=== PATIENT | female | born 1990 | race Two or more races ===

== ENCOUNTER 2024-05-03 21:25 | Emergency (ER) | payer MEDICAID, SELFPAY ==
[2024-05-03 21:29] VITALS: BP 167/108; PULSE 101; RESP 18; TEMP 36.8; O2SAT 100
[2024-05-03 21:32] VITALS: BMI 27.4
--- NOTE | 2024-05-03 21:44 | EDNOTE_ITS ---
ED General RME/HPI General Chief complaint: Overdose Stated complaint: OVERDOSE Time Seen by Provider: 05/03/24 21:43 Arrival date/time: 05/03/24 21:25 CC: Fentanyl overdose HPI patient presents the ER via EMS and currently is awake alert oriented x 3 Glascow coma 15 and originally EMS report the patient was arley burnett, 3 fire department had just given intranasal naloxone upon arrival at which time the patient completely woke up. EMS reports stable vital signs en route IV established. The patient is currently awake alert oriented no specific complaints. States that she smokes cigarettes but does not use any other street drugs drink alcohol last menstrual cycle was 2 weeks ago. The patient has no specific complaints at this time. Related Data Allergies Allergy/AdvReac Type Severity Reaction Status Date / Time No Known Allergies Allergy Verified 04/06/22 22:57 Review of Systems Review of Systems Narrative Review of Systems: GEN: No fever, no chills, no weight loss EYES: No discharge, no visual changes, no pain HEENT: No ear pain, no congestion, no sore throat PULM: No shortness of breath, no cough, no congestion CV: No chest pain, no dyspnea on exertion, no palpitations GI: No nausea, no vomiting, no diarrhea, no pain, no constipation : No frequency, no urgency, no dysuria MUSC/SKEL: No joint pain, no back pain SKIN: No rash PSYCH: No hallucinations, no depression HEME/LYMPH: No easy bleeding or bruising tendencies NEURO: No weakness, no headache Past Medical History Past Medical History NEUROLOGIC: Negative Neurological Disorders or Seizures CARDIAC: Negative Cardiac Disorders or Congestive Heart Failure RESPIRATORY: Negative Chronic Obstructive Pulmonary Disease (COPD) GASTROINTESTINAL: Positive Gall Bladder Disease; Negative Gastrointestinal Disorders, Hepatitis or Colorectal Cancer GENITOURINARY: Negative Genitourinary Disorders, Renal Disease or Prostate Cancer REPRODUCTIVE: Negative Breast Cancer or Testicular Cancer MUSCULOSKELETAL: Positive Musculoskeletal Disorders; Negative Bone Cancer ENDOCRINE: Negative Endocrine Disorders, Diabetes Mellitus Type 1 or Diabetes Mellitus Type 2 HEMATOLOGIC: Negative Blood Disorders OTHER HISTORY: Positive Hospitalization and Chicken Pox; Negative Autoimmune Disease, Down Syndrome, Developmental Delay, Shingles, Falls, Blood Transfusions, Blood Transfusion Reaction, Anesthesia Reactions, Organ Transplant, Chemotherapy, Radiation Therapy, Hyperbaric Therapy, MRSA, VRSA, Vancomycin-Resistant Enterococci, Human Immunodeficiency Virus (HIV), Measles, Mumps, Rubella (Amharic Measles), Pertussis, Clostridium Difficile, Breast Cancer, Cervical Cancer, Colorectal Cancer, Lung Cancer, Ovarian Cancer, Prostate Cancer or Testicular Cancer Family History FAMILY HISTORY: Negative Family Psychiatric Problems, Family Respiratory Disorders, Family Cardiac Disorders, Family Gastrointestinal Problems, Family Cancer, Family Surgery or Family Anesthesia Reaction Surgical History SURGICAL: Positive Abdominal Surgery and Section; Negative Organ Transplant Social History SMOKING STATUS: Current some day smoker SECOND HAND EXPOSURE: Yes ED Exam Narrative Physical exam: [General: Obese not in any acute distress Head normocephalic HEENT: Within acceptable limits Neck is supple nontender Chest equal chest rise nontender to palpation Respiratory: Clear to auscultation no wheezes crackles or rubs CV: Rate rhythm is regular no murmurs rubs or clicks Abdomen is soft nontender no masses positive bowel sounds all 4 quadrants Back: No CVA tenderness no spinous process tenderness from cervical spine thoracic and lumbar spine Skin: Intact no petechiae rash induration ulceration or crepitus Extremities: Moving all extremity against resistance cap refill less than 2 seconds neurosensory intact Neuro: Awake alert oriented x3 Glascow coma 15 no focal deficits] Course Course Course Narrative: 2199 patient is requesting discharge, the patient is awake alert oriented of sound mind, is no slurred speech altered mentation direct eye contact denies suicidal homicidal ideation. She is refusing all medical interventions including blood draw urine test. This time I am comfortable discharging this patient home she is warned that smoking fentanyl can be life-threatening patient understands the consequences of this and understand that she may just like she did before the Narcan was administered. Quality Measures none Orders Category Date Time Status Alcohol, Urine Stat Lab 05/03/24 21:44 Ordered Drug Screen,Urine Stat Lab 05/03/24 21:44 Ordered HCG Qualitative,Urine Stat Lab 05/03/24 21:44 Ordered Urinalysis Stat Lab 05/03/24 21:44 Ordered Vital Signs Vital signs: Vital Signs Temperature 98.3 F 05/03/24 21:29 Pulse Rate 101 H 05/03/24 21:29 Respiratory Rate 18 05/03/24 21:29 Blood Pressure 167/108 H 05/03/24 21:29 Pulse Oximetry (%) 100 05/03/24 21:29 [facility] Patient data External records reviewed:: [facility] previous records and EMS form Clinical information provided by:: patient and EMS Social determinants that could affect healthcare access:: substance use Patient has the following chronic illnesses:: Polysubstance abuse How is presenting disease/condition affected by chronic disease/condition?: exacerbated by Evaluation data The following diagnostics were reviewed and interpreted by me:: lab results Lab and/or radiology exams considered but not ordered:: None Interpretation Summary: Fentanyl overdose Medications Medications considered but not ordered:: None Medication administrations:: None Consultations Consultation(s) initiated? (list below): No Diagnosis Differential Diagnosis ED Complaint MDM: Fentanyl overdose polysubstance abuse alcohol abuse Most likely diagnosis given after review of the tests above:: Fentanyl overdose Admission Indicated Admission indicated?: not indicated Explain why admission is indicated or not indicated:: Refusing stay in the ER refusing admission Admission Request Was there a request for admission?: No Disposition Plan Disposition Plan: Discharge Discharge Attestation Discharge Attestation: The patient and all family members were given an opportunity to ask questions and understood the discharge instructions. Discharge instructions specifically effects, indications for sooner follow up or return to the emergency department, and the expected course of current diagnosis. Patient condition: Stable Medical Decision Making Differential Diagnosis Differential Diagnosis: Fentanyl overdose polysubstance abuse alcohol abuse Discharge Plan Plan Patient Disposition: HOME (Self Care) Patient condition on transfer: Stable Problem List Clinical Impression: Mild fentanyl abuse, Overdose of fentanyl Patient/Caregiver Discharge Instructions Education Materials: ED Drug Abuse Additional Instructions: Stop fentanyl at all costs. Print Language: Salvadorean Stand Alone Forms: Yanni Award Info., Patient Portal Info Letter PA/RENEE Supervising Physician PA/PAINT LINE SUPERVISOR Supervising Physician: Juan A Mary ENP
[2024-05-03 21:52] VITALS: PULSE 112; O2SAT 99
--- NOTE | 2024-05-03 21:55 | PC.NURSE ---
PT AWAKE AND ALERT BROUGHT INTO ER BY AMBULANCE FOR ACCIDENTAL OVERDOSE. PER EMS PT SMOKED FENTANYL. ON SCENE PT GCS 3 FOR FIRE, PLACED ON OXYGEN. PT GIVEN X4 NARCAN BY PD. UPON EMS ARRIVAL PT [facility]CS 15. PT PLACED IN RM 11. PT DENIES ANY SI OR HI. PT AMBULATORY WITH STEADY GAIT. PT ALERT AND ORIENTED X3. PT DENIES ANY PAIN. PT WANTING TO LEAVE, PROVIDER MARI MADE AWARE.
[2024-05-03 22:13] VITALS: PULSE 104; RESP 16; O2SAT 100
== END 2024-05-03 22:21 | disposition home or self-care (01) ==
LOC: SERX 22:08
PROVIDERS: Emergency Provider Emergency Medicine; PCP Family Medicine
DX: T40.411A Poisoning by fentanyl or fentanyl analogs, accidental (unintentional), initial encounter (principal); F11.10 Opioid abuse, uncomplicated; F17.210 Nicotine dependence, cigarettes, uncomplicated
CPT/HCPCS: 80307; 80320; 81001; 81025; 99283; G0480

== ENCOUNTER 2024-09-22 20:46 | Emergency (ER) | payer MEDICAID, SELFPAY ==
[2024-09-22 20:47] VITALS: BMI 25.7
--- NOTE | 2024-09-22 21:13 | PC.NURSE ---
CALLED FOR PT FROM LOBBY/OUTSIDE, NO ANSWERX1@ [phone]
--- NOTE | 2024-09-22 21:30 | PC.NURSE ---
CALLED FOR PT FROM LOBBY/OUTSIDE, NO ANSWERX2@ [phone]
--- NOTE | 2024-09-22 22:05 | PD.EDADDENDU ---
Emergency Room Addendum Addendum Narrative: The patient left before I saw the patient. Kole Sequeira MD
--- NOTE | 2024-09-22 23:02 | PC.NURSE ---
CALLED FOR PT FROM LOBBY/OUTSIDE, NO ANSWERX3@ [phone]
== END 2024-09-22 23:25 | disposition left against medical advice (07) ==
LOC: SERX 22:43
PROVIDERS: Emergency Provider Emergency Medicine
DX: Z53.21 Procedure and treatment not carried out due to patient leaving prior to being seen by health care provider (principal)

== ENCOUNTER 2024-09-29 10:00 | Emergency (ER) | payer MEDICAID, SELFPAY ==
[2024-09-29 10:10] VITALS: BP 132/90; PULSE 94; RESP 18; TEMP 37.1; O2SAT 100; BMI 24.0
--- NOTE | 2024-09-29 10:23 | EKG_ITS ---
[facility] Test Date: 2024-09-29 Pat Name: KINJAL RUSS Department: Room: - Gender: Female Dye Stand Loader: : 1990 Requested By: Jason Bill (SHAWNEE) Order Number: [id number] Reading MD: Jason Bill (EYE GLASS FRAME POLISHER) Measurements Intervals [place] Rate: 87 P: 7 OH: 100 QRS: 48 QRSD: 90 T: 36 QT: 368 QTc: 445 Interpretive Statements SINUS RHYTHM WITH SHORT OH INTERVAL Compared to ECG 02/05/2023 08:22:47 Short OH interval now present /store/[id number]
--- NOTE | 2024-09-29 10:23 | XR_ITS ---
Examination: PA lateral chest 2 views TECHNIQUE: Upright PA lateral chest 2 views Exam date and time: September 29, 2024 1208 hours Comparison the 2022 INDICATIONS: Shortness breath coughing today. LUNGS: Normal heart size Significant pneumonia right middle lobe and lingular segment left upper lobe Stable nodule right upper lobe IMPRESSION: Significant pneumonia right middle lobe and lingular segment left upper lobe
[2024-09-29 11:02] LABS: Basophils % (Auto) 0 % (0-2.5); Eosinophils % (Auto) 0 % (0-10); Hematocrit 31.2 % (36.0-46.0); Hemoglobin 10.1 g/dL (12.0-16.0); Immature Granulocytes % (Auto) 0 % (0-0); Immature Granulocytes Auto 0.01 Thou/mm3 (0.00-0.00); Lymphocytes # (Auto) 1.6 Thou/mm3 (1.0-4.8); Lymphocytes % (Auto) 23 % (10-50); Mean Corpuscular HGB Conc 32.4 g/dl (31.0-37.0); Mean Corpuscular Hemoglobin 24.8 pg (25.0-35.0); Mean Corpuscular Volume 77 fL (80-100); Monocytes # (Auto) 0.4 Thou/mm3 (0.0-0.8); Monocytes % (Auto) 6 % (0-12); Neutrophils # (Auto) 4.8 Thou/mm3 (1.8-7.7); Neutrophils % (Auto) 70 % (37-80); Nucleated Red Blood Cell % 0 /100 WBC (0); Platelet Count 426 Thou/mm3 (140-440); RDW Standard Deviation 49.6 fL (36.4-46.3); Red Blood Count 4.07 Miln/mm3 (4.00-5.20); White Blood Count 6.8 Thou/mm3 (3.6-11.0)
[2024-09-29 11:13] LABS: HCG,Qualitative Serum Negative
[2024-09-29 11:24] LABS: Alanine Aminotransferase 16 U/L (10-49); Albumin, Serum 4.3 gm/dL (3.5-5.0); Albumin/Globulin Ratio 1.3 (1.2-2.2); Alkaline Phosphatase 99 U/L (46-116); Anion Gap 6 (7-16); Aspartate Amino Transferase 22 U/L (0-34); BUN/Creatinine Ratio 15 Ratio (12-20); Bilirubin,Total 0.6 mg/dL (0.3-1.2); Blood Urea Nitrogen 9 mg/dL (9-23); Calcium 9.2 mg/dL (8.3-10.6); Calcium (Corrected) 9.2 mg/dL (8.5-10.1); Carbon Dioxide 25.2 mMol/L (20.0-31.0); Chloride 107 mMol/L (98-107); Creatinine (Component) 0.6 mg/dL (0.6-1.3); Estimated Creatinine Clearance 114.1 mL/min (>60); Globulin 3.4 gm/dL (2.3-3.5); Glucose 97 mg/dL (74-106); Osmolality,Calculated 274 (275-295); Potassium 3.3 mMol/L (3.4-5.1); Sodium 138 mMol/L (136-145); Total Protein 7.7 gm/dL (5.7-8.2); Troponin I < 0.002 ng/mL (0.0-0.045); eGFR > 60 See Note
--- NOTE | 2024-09-29 12:58 | EDNOTE_ITS ---
Upper Respiratory Inf. RME/HPI General Chief Complaint: Flu Like Symptoms Stated Complaint: sob with cough x2wks Time Seen by Provider: 09/29/24 10:20 Arrival date/time: 09/29/24 10:00 34-year-old female with medical history significant for methamphetamine abuse presents to the emergency department for complaints of cough, congestion runny nose and fever ongoing for the last couple of weeks intermittently Limitations: no limitations Related Data Previous Rx's ?Medication ?Instructions ?Recorded amoxicillin 875 mg-potassium 1 tab PO BID 10 days #20 tabs 09/29/24 clavulanate 125 mg tablet benzonatate 100 mg capsule 100 mg PO TID #14 caps 09/08 08/31 Allergies Allergy/AdvReac Type Severity Reaction Status Date / Time No Known Allergies Allergy Verified 04/06/22 22:57 Review of Systems Review of Systems Systems Reviewed: All systems reviewed, normal except as documented Constitutional Constitutional: Reports system reviewed and no additional complaints, except as documented, Reports body ache(s), Reports fever(s) and Reports headache(s) Eyes Eyes: Reports system reviewed and no additional complaints, except as documented and Denies blurry vision ENT Ears, Nose, Mouth, and Throat: Reports system reviewed and no additional complaints, except as documented, Reports headache(s), Reports nasal congestion and Reports nasal discharge Cardiovascular Cardiovascular: Reports system reviewed and no additional complaints, except as documented, Denies chest pain and Denies dyspnea Respiratory Respiratory: Reports system reviewed and no additional complaints, except as documented, Reports chest congestion, Reports cough and Denies dyspnea Gastrointestinal Gastrointestinal: Reports system reviewed and no additional complaints, except as documented and Denies abdominal pain Integumentary/Breasts Skin/Breast: Reports system reviewed and no additional complaints, except as documented and Denies rash Neurologic Neurologic: Reports system reviewed and no additional complaints, except as documented, Reports as per HPI and Reports headache(s) Past Medical History Past Medical History NEUROLOGIC: Negative Neurological Disorders or Seizures CARDIAC: Negative Cardiac Disorders or Congestive Heart Failure RESPIRATORY: Negative Chronic Obstructive Pulmonary Disease (COPD) GASTROINTESTINAL: Positive Gall Bladder Disease; Negative Gastrointestinal Disorders, Hepatitis or Colorectal Cancer GENITOURINARY: Negative Genitourinary Disorders, Renal Disease or Prostate Cancer REPRODUCTIVE: Negative Breast Cancer or Testicular Cancer MUSCULOSKELETAL: Positive Musculoskeletal Disorders; Negative Bone Cancer ENDOCRINE: Negative Endocrine Disorders, Diabetes Mellitus Type 1 or Diabetes Mellitus Type 2 HEMATOLOGIC: Negative Blood Disorders OTHER HISTORY: Positive Hospitalization and Chicken Pox; Negative Autoimmune Disease, Down Syndrome, Developmental Delay, Shingles, Falls, Blood Transfusions, Blood Transfusion Reaction, Anesthesia Reactions, Organ Transplant, Chemotherapy, Radiation Therapy, Hyperbaric Therapy, MRSA, VRSA, Vancomycin-Resistant Enterococci, Human Immunodeficiency Virus (HIV), Measles, Mumps, Rubella (Kazakh Measles), Pertussis, Clostridium Difficile, Breast Cancer, Cervical Cancer, Colorectal Cancer, Lung Cancer, Ovarian Cancer, Prostate Cancer or Testicular Cancer Family History FAMILY HISTORY: Negative Family Psychiatric Problems, Family Respiratory Disorders, Family Cardiac Disorders, Family Gastrointestinal Problems, Family Cancer, Family Surgery or Family Anesthesia Reaction Surgical History SURGICAL: Positive Abdominal Surgery and Section; Negative Organ Transplant Social History SMOKING STATUS: Current some day smoker SECOND HAND EXPOSURE: Yes ED Exam General Limitations: Present no limitations General appearance: Present alert and in no apparent distress Head Head exam: Present atraumatic, normocephalic and normal inspection Eye Eye exam: Present normal appearance, PERRL and EOMI; Absent conjunctival injection ENT ENT exam: Present normal exam, normal oropharynx and mucous membranes moist Neck Neck exam: Present normal inspection, full ROM and trachea midline Chest Chest inspection: Present normal inspection and symmetric chest wall rise Respiratory Respiratory exam: Present normal lung sounds bilaterally; Absent respiratory distress Cardiovascular Cardiovascular exam: Present regular rate, normal rhythm and normal heart sounds Abdominal Exam Abdominal exam: Present soft and normal bowel sounds; Absent distention, tenderness, guarding, rebound or rigidity Extremities Exam Extremities exam: Present normal inspection and full ROM Back Exam Back exam: Present normal inspection and full ROM Neurological Exam Neurological exam: Present alert, oriented X3 and CN II-XII intact Psychiatric Psychiatric exam: Present normal affect and normal mood Skin Skin exam: Present warm, dry, intact and normal color Course Quality Measures none Orders Category Date Time Status EKG (ED ONLY) *Do not use* NOW Care 09/29/24 10:23 Completed EKG (ED Only) Stat Exams 09/29/24 10:23 Draft XR chest 2V Stat Exams 09/29/24 10:23 Completed CBC Stat Lab 09/29/24 10:40 Completed Comprehensive Metabolic Panel Stat Lab 09/29/24 10:40 Completed HCG,Qualitative Serum Stat Lab 09/29/24 10:40 Completed Troponin I Stat Lab 09/29/24 10:40 Completed Lidocaine 1% 20 ml [Xylocaine 1% 20 ML] Med 09/29/24 12:59 Discontinued 2.1 ml INFL X1 ONE cefTRIAXone [Rocephin] Med 09/29/24 12:59 Discontinued 1,000 mg IM X1 ONE Vital Signs Vital signs: Vital Signs Temperature 98.7 F 09/29/24 10:10 Pulse Rate 94 09/29/24 10:10 Respiratory Rate 18 09/29/24 10:10 Blood Pressure 132/90 H 09/29/24 10:10 Pulse Oximetry (%) 100 09/29/24 10:10 Oxygen Delivery Method Room Air 09/29/24 10:10 O2 saturation 100% room air within normal limits Procedures -ED EKG Interpretation #1: Date of EK09/29/24 Time of EK:32 Rate: 87 Interpretation: Interpreted by me EKG Impression: Normal sinus rhythm, No acute ST-T changes, No ectopy, No ischemic changes, Normal QRS and Normal intervals Upper Respiratory Infection MDM Narrative MDM Narrative:: 34-year-old female with medical history significant for methamphetamine abuse presents to the emergency department for complaints of cough, congestion runny nose and fever ongoing for the last couple of weeks intermittently On exam patient well-appearing patient does not appear ill or toxic in no acute distress patient is no tachypnea or dyspnea no increased work of breathing patient is hemodynamically stable Lab work and imaging obtained patient does have pneumonia patient given Rocephin and discharged with antibiotics Patient discharged home in no distress to follow-up with primary care doctor in the next 24 to 48 hours and for any worsening symptoms to return to the ER immediately Patient data External records reviewed:: [facility] previous records Clinical information provided by:: patient Social determinants that could affect healthcare access:: none Patient has the following chronic illnesses:: See history How is presenting disease/condition affected by chronic disease/condition?: uneffected by Evaluation data The following diagnostics were reviewed and interpreted by me:: lab results and radiology exam(s) Lab and/or radiology exams considered but not ordered:: Labs and radiology obtained Interpretation Summary: Reviewed by me Medications / Prescriptions Medications or Prescriptions considered but not ordered:: Given Medication administrations:: Medication Administration History Discontinued Medications Ceftriaxone Sodium (Ceftriaxone Sod Inj 1,000 Mg Vial) 1,000 mg IM X1 ONE Stop: 09/29/24 13:00 Last Admin: 09/29/24 13:28 Dose: 1,000 mg Documented By: Lidocaine HCl (Lidocaine Hcl 1% 20 Ml Vial) 2.1 ml INFL X1 ONE Stop: 09/29/24 13:00 Last Admin: 09/29/24 13:29 Dose: 2.1 ml Documented By: Given Consultations Consultation(s) initiated? (list below): No Diagnosis Upper Respiratory Differential Diagnosis: upper respiratory infection, otitis media, sinusitis and viral infection Most likely diagnosis given after review of the tests above:: Pneumonia Admission Indicated Admission indicated?: not indicated Admission Request Was there a request for admission?: No Disposition Plan Disposition Plan: Discharge Discharge Attestation Discharge Attestation: The patient and all family members were given an opportunity to ask questions and understood the discharge instructions. Discharge instructions specifically effects, indications for sooner follow up or return to the emergency department, and the expected course of current diagnosis. Patient condition: Stable Discharge Plan Plan Patient Disposition: HOME (Self Care) Disposition Comment: Stable Prescriptions/Referrals Prescriptions/Med Rec: New benzonatate 100 mg capsule 100 mg PO TID Qty: 14 0RF amoxicillin-pot clavulanate 875-125 mg tablet 1 tab PO BID 10 Days Qty: 20 0RF Referrals: Viri Foy MD [Primary Care Provider] - 10/01/24 Problem List Clinical Impression: Pneumonia Patient/Caregiver Discharge Instructions Education Materials: ED Pneumonia (Adult) Additional Instructions: Please follow up with your primary care doctor in the next 24-48hrs for any worsening symptoms return here immediately Print Language: Chinese Stand Alone Forms: Yanni Award Info., Work/School Release, Patient Portal Info Letter IVY/RENEE Supervising Physician IVY/RENEE Supervising Physician: Dr anderson
[2024-09-29] MEDS: cefTRIAXone SOD INJ 1,000 MG VIAL 1000 MG IM (13:28)
[2024-09-29] MEDS: LIDOCAINE HCL 1% 20 ML VIAL 2.1 ML INFL (13:29)
== END 2024-09-29 13:43 | disposition home or self-care (01) ==
PROVIDERS: Nurse Practitioner Primary Care; Emergency Provider Emergency Medicine; PCP Family Medicine
DX: J18.9 Pneumonia, unspecified organism (principal); Z77.22 Contact with and (suspected) exposure to environmental tobacco smoke (acute) (chronic); R94.31 Abnormal electrocardiogram [ECG] [EKG]
CPT/HCPCS: 36415; 71046; 80053; 84484; 84703; 85025; 93005; 96372; 99283; J0696; J3490

== ENCOUNTER 2025-01-23 15:49 | Emergency (ER) | payer MEDICAID, SELFPAY ==
[2025-01-23 15:53] VITALS: BP 155/102; BP 164/113; PULSE 115; RESP 19; TEMP 36.9; O2SAT 99
[2025-01-23 15:55] VITALS: BMI 27.4
--- NOTE | 2025-01-23 16:23 | XR_ITS ---
Examination: Complete OB ultrasound greater than 14 weeks Date and time of exam: January 23, 2025 1634 hours INDICATIONS: Onset pelvic pain beginning today Findings: Viable intrauterine single fetus with single amniotic sac presentation transverse Cardiac motion 152 BPM. Placenta fundal grade 1. Umbilical cord insertion 3 vessel seen. Amniotic fluid index normal. spine posterior. Cervix 3.1 cm. Right ovary 2.7 cm arterial flow. Upper view obscured by bowel gas.. Composite estimated gestational age based on BPD, head circumference, abdominal circumference, femur length is 17 weeks 0 days Estimated weight 175 g. Survey of intracranial anatomy, spinal anatomy, abdominal anatomy, four-chamber heart performed with no abnormalities identified. Impression: Viable intrauterine gestation in transverse presentation..
--- NOTE | 2025-01-23 16:25 | EDRME_ITS ---
Rapid Medical Screening Exam RME Arrival date/time: 01/23/25 15:49 34-year-old female with a history of methamphetamine abuse was sent to the emergency room for medical longterm clearance for incarceration. The longterm is wanting medical clearance due to the patient's high risk . The patient has hypertension, urine infection, and elevated blood pressure, tachycardia, and is on methadone for methamphetamine abuse. Patient's last methadone dose was 01/21/2025 I have greeted and performed a focused initial assessment of this patient. A comprehensive ED assessment and evaluation of the patient, analysis of all test results, and completion of the medical decision making process will be conducted by additional ED providers. Time Seen by Provider: 01/23/25 15:56 Vital signs: Vital Signs Temperature 98.5 F 01/23/25 15:53 Pulse Rate 115 H 01/23/25 15:53 Respiratory Rate 19 01/23/25 15:53 Blood Pressure 155/102 H 01/23/25 15:53 Pulse Oximetry (%) 99 01/23/25 15:53 Oxygen Delivery Method Room Air 01/23/25 15:53 Vital signs reviewed by provider: Yes
[2025-01-23 16:44] LABS: Basophils # (Auto) 0.0 Thou/mm3 (0.0-0.2); Basophils % (Auto) 0 % (0-2.5); Eosinophils # (Auto) 0.0 Thou/mm3 (0.0-0.5); Eosinophils % (Auto) 0 % (0-10); Hematocrit 35.7 % (36.0-46.0); Hemoglobin 11.6 g/dL (12.0-16.0); Immature Granulocytes Auto 0.01 Thou/mm3 (0.00-0.00); Lymphocytes # (Auto) 1.1 Thou/mm3 (1.0-4.8); Lymphocytes % (Auto) 14 % (10-50); Mean Corpuscular HGB Conc 32.5 g/dl (31.0-37.0); Mean Corpuscular Hemoglobin 27.5 pg (25.0-35.0); Mean Corpuscular Volume 85 fL (80-100); Monocytes # (Auto) 0.4 Thou/mm3 (0.0-0.8); Monocytes % (Auto) 5 % (0-12); Neutrophils # (Auto) 6.3 Thou/mm3 (1.8-7.7); Neutrophils % (Auto) 81 % (37-80); Nucleated Red Blood Cell # 0.00 Thou/mm3 (0.00-0.00); Nucleated Red Blood Cell % 0 /100 WBC (0); Platelet Count 296 Thou/mm3 (140-440); RDW Standard Deviation 53.8 fL (36.4-46.3); Red Blood Count 4.22 Miln/mm3 (4.00-5.20); White Blood Count 7.8 Thou/mm3 (3.6-11.0)
[2025-01-23 17:00] LABS: Alanine Aminotransferase 15 U/L (10-49); Albumin, Serum 4.3 gm/dL (3.5-5.0); Albumin/Globulin Ratio 1.4 (1.2-2.2); Alkaline Phosphatase 85 U/L (46-116); Anion Gap 9 (7-16); Aspartate Amino Transferase 27 U/L (0-34); BUN/Creatinine Ratio 13 Ratio (12-20); Bilirubin,Total 0.3 mg/dL (0.3-1.2); Blood Urea Nitrogen 8 mg/dL (9-23); Calcium 9.7 mg/dL (8.3-10.6); Calcium (Corrected) 9.7 mg/dL (8.5-10.1); Carbon Dioxide 25.1 mMol/L (20.0-31.0); Chloride 104 mMol/L (98-107); Creatinine (Component) 0.6 mg/dL (0.6-1.3); Estimated Creatinine Clearance 129.0 mL/min (>60); Globulin 3.0 gm/dL (2.3-3.5); Glucose 99 mg/dL (74-106); Osmolality,Calculated 273 (275-295); Potassium 4.1 mMol/L (3.4-5.1); Sodium 138 mMol/L (136-145); Total Protein 7.3 gm/dL (5.7-8.2); eGFR > 60 See Note
[2025-01-23 17:11] LABS: Alcohol, Blood Medical < 3.0 mg/dL (0-10.0)
[2025-01-23 17:25] LABS: Beta HCG,Quantitative 7049 mIU/mL (<5.0)
--- NOTE | 2025-01-23 18:46 | PD.EDMEDCL ---
ED Medical Clearance RME/HPI General Stated complaint: MEDICAL CLEARENCE Time Seen by Provider: 01/23/25 15:56 Arrival date/time: 01/23/25 15:49 RME / HPI RME / HPI Narrative: 01/23/25 15:49 34-year-old female with a history of methamphetamine abuse was sent to the emergency room for medical senior care clearance for incarceration. The senior care is wanting medical clearance due to the patient's high risk . The patient has hypertension, urine infection, and elevated blood pressure, tachycardia, and is on methadone for methamphetamine abuse. Patient's last methadone dose was 01/21/2025 I have greeted and performed a focused initial assessment of this patient. A comprehensive ED assessment and evaluation of the patient, analysis of all test results, and completion of the medical decision making process will be conducted by additional ED providers. This section includes all my notes and documentations, including HPI, PE, and ED course. Kole Sequeira MD HPI: 34yo female who is about 17 weeks gestation BIB PPD here for a medical clearance due to high BP at the senior care. Patient has not taken her methadone in several days. Patient does have cramping. No nausea, vomiting, or vaginal bleeding. No other complaints reported. ROS: All negative except as documented in HPI. Physical Exam: General: Alert and oriented. No acute distress when remaining still. High BP noted. Eyes: Conjunctivae and lids clear. ENT: No nasal congestion. Neck: Supple. Heart: Sinus tachycardia noted. Lungs: No respiratory distress. Good air movement. No rhonchi, wheezing, rales. Abdomen: Soft and nontender. Normal bowel sounds. No distension. No rebound or guarding. Back: No CVA tenderness. Skin: Warm and dry. Neuro: Alert and oriented X 3. Cranial nerves II to XII grossly normal. No peripheral motor deficits. I reviewed all diagnostic test results. My review of the US OB report is 17-week IUP. Blood tests are unremarkable. At this point, diagnoses include Threatened miscarriage, Hypertension, Tachycardia. Treatment here included Metoprolol and Clonidine. Significant improvement noted. Recommended more outpatient care. Based on my best medical judgment, made decision to medically clear the patient and no further evaluation or treatment indicated at this time. Patient understands and agrees to the discharge instructions customized and printed, see below. Discharge Instructions from Dr. Sequeira printed for you: 1. After evaluation, your baby is alive and doing well. You are medically cleared for senior care. 2. Based on ultrasound today, gestational age is 17 weeks. 3. Only time will tell what will happen. If your symptoms worsen with heavy bleeding, you can have a miscarriage. If your symptoms stop, you can have successful . 4. If you do have a miscarriage, we won't be able to save your baby. Under 20-24 weeks, we can't save the baby. 5. No sexual activity until cleared by a doctor taking care of you. 6. See a private doctor on 01/24/2025 or whenever you are released for recheck and further care. Ask to review all test results and official radiology reports, to make sure you receive all necessary follow-ups and monitoring, including high BP and fast heart rate treated today. 7. Seek immediate medical care with intolerable pain, extremely heavy vaginal bleeding (soaking more than 3 pads per hour), or with any concerns. Kole Sequeira MD Related Information Previous Rx's ?Medication ?Instructions ?Recorded benzonatate 100 mg capsule 100 mg PO TID #14 caps 09/29/24 Allergies Allergy/AdvReac Type Severity Reaction Status Date / Time No Known Allergies Allergy Verified 04/06/22 22:57 Review of Systems Review of Systems Systems Reviewed: All systems reviewed, normal except as documented Past Medical History Past Medical History NEUROLOGIC: Negative Neurological Disorders or Seizures CARDIAC: Negative Cardiac Disorders or Congestive Heart Failure RESPIRATORY: Negative Chronic Obstructive Pulmonary Disease (COPD) GASTROINTESTINAL: Positive Gall Bladder Disease; Negative Gastrointestinal Disorders, Hepatitis or Colorectal Cancer GENITOURINARY: Negative Genitourinary Disorders, Renal Disease or Prostate Cancer REPRODUCTIVE: Negative Breast Cancer or Testicular Cancer MUSCULOSKELETAL: Positive Musculoskeletal Disorders; Negative Bone Cancer ENDOCRINE: Negative Endocrine Disorders, Diabetes Mellitus Type 1 or Diabetes Mellitus Type 2 HEMATOLOGIC: Negative Blood Disorders OTHER HISTORY: Positive Hospitalization and Chicken Pox; Negative Autoimmune Disease, Down Syndrome, Developmental Delay, Shingles, Falls, Blood Transfusions, Blood Transfusion Reaction, Anesthesia Reactions, Organ Transplant, Chemotherapy, Radiation Therapy, Hyperbaric Therapy, MRSA, VRSA, Vancomycin-Resistant Enterococci, Human Immunodeficiency Virus (HIV), Measles, Mumps, Rubella (Tristanian Measles), Pertussis, Clostridium Difficile, Breast Cancer, Cervical Cancer, Colorectal Cancer, Lung Cancer, Ovarian Cancer, Prostate Cancer or Testicular Cancer Family History FAMILY HISTORY: Negative Family Psychiatric Problems, Family Respiratory Disorders, Family Cardiac Disorders, Family Gastrointestinal Problems, Family Cancer, Family Surgery or Family Anesthesia Reaction Surgical History SURGICAL: Positive Abdominal Surgery and Section; Negative Organ Transplant Social History SMOKING STATUS: Current some day smoker SECOND HAND EXPOSURE: Yes ED Exam Narrative Physical exam: As noted in HPI. Course Quality Measures none Orders Category Date Time Status US OB >= 14 weeks Fetus Stat Exams 01/23/25 16:23 Completed ABO/RH Type Stat Lab 01/23/25 16:29 Completed Alcohol, Blood Medical Stat Lab 01/23/25 16:29 Completed Beta HCG,Quantitative Stat Lab 01/23/25 16:29 Completed CBC Stat Lab 01/23/25 16:29 Completed CMP [Comprehensive Metabolic Panel] Stat Lab 01/23/25 16:29 Completed Drug Screen,Urine Stat Lab 01/23/25 16:01 Ordered UA [Urinalysis] Stat Lab 01/23/25 16:01 Ordered Metoprolol Succinate Xl [Toprol Xl] Med 01/23/25 19:01 Discontinued 100 mg PO X1 ONE cloNIDine HCL [Catapres] Med 01/23/25 19:01 Discontinued 0.3 mg PO X1 ONE Vital Signs Vital signs: Vital Signs Temperature 98.5 F 01/23/25 15:53 Pulse Rate 115 H 01/23/25 15:53 Respiratory Rate 19 01/23/25 15:53 Blood Pressure 155/102 H 01/23/25 15:53 Pulse Oximetry (%) 99 01/23/25 15:53 Oxygen Delivery Method Room Air 01/23/25 15:53 Medical Clearance MDM Narrative [facility] Narrative:: 34yo female who is 17 weeks gestation BIB PPD here for a medical clearance due to her blood pressure being high. Patient has not taken her methadone in 2 days. Patient does have abdominal cramping. No nausea, vomiting, or vaginal bleeding. No other complaints reported. Patient data External records reviewed:: [facility] previous records (Per chart review, patient was seen here on 09/29/24 for pneumonia.) Clinical information provided by:: patient and law enforcement Social determinants that could affect healthcare access:: substance use Patient has the following chronic illnesses:: HTN How is presenting disease/condition affected by chronic disease/condition?: caused by Evaluation data The following diagnostics were reviewed and interpreted by me:: lab results and radiology exam(s) Lab and/or radiology exams considered but not ordered:: none Interpretation Summary: I reviewed all diagnostic test results. My review of the US OB report is 17-week IUP. Blood tests are unremarkable. Medications / Prescriptions Medications or Prescriptions considered but not ordered:: none Medication administrations:: Medication Administration History Discontinued Medications Clonidine (Clonidine Hcl 0.1 Mg Tablet) 0.3 mg PO X1 ONE Stop: 01/23/25 19:02 Last Admin: 01/23/25 19:32 Dose: 0.3 mg Documented By: WESLY Metoprolol Succinate (Metoprolol Succinate Xl 25 Mg Tabcr) 100 mg PO X1 ONE Stop: 01/23/25 19:02 Last Admin: 01/23/25 19:32 Dose: 100 mg Documented By: WESLY Metoprolol, Clonidine Consultations Consultation(s) initiated? (list below): No Diagnosis Medical Clearance Differential Diagnosis: other (Threatened AB, complete AB, ectopic, normal IUP, hypertension) Most likely diagnosis given after review of the tests above:: Threatened miscarriage, Hypertension, Tachycardia Admission Indicated Admission indicated?: not indicated Explain why admission is indicated or not indicated:: With significant improvement and no condition needing emergent intervention, there was no indication for admission. Admission Request Was there a request for admission?: No Disposition Plan Disposition Plan: Discharge Discharge Attestation Discharge Attestation: The patient and all family members were given an opportunity to ask questions and understood the discharge instructions. Discharge instructions specifically effects, indications for sooner follow up or return to the emergency department, and the expected course of current diagnosis. Patient condition: Stable Discharge Plan Plan Patient Disposition: HOME (Self Care) Prescriptions/Referrals Prescriptions/Med Rec: No Action benzonatate 100 mg capsule 100 mg PO TID Qty: 14 0RF Referrals: No Primary/Family,Physician [Primary Care Provider] - In 1 week Problem List Clinical Impression: Threatened miscarriage, Hypertension, Tachycardia Patient/Caregiver Discharge Instructions Discharge Activity: activity as tolerated Education Materials: ED Hypertension, To Be Confirmed, ED Possible Miscarriage ... Additional Instructions: Discharge Instructions from Dr. Sequeira printed for you: 1.? After evaluation, your baby is alive and doing well. You are medically cleared for senior care. 2.? Based on ultrasound today, gestational age is 17 weeks. 3.? Only time will tell what will happen. If your symptoms worsen with heavy bleeding, you can have a miscarriage. If your symptoms stop, you can have successful . 4.? If you do have a miscarriage, we won't be able to save your baby. Under 20-24 weeks, we can't save the baby. 5.? No sexual activity until cleared by a doctor taking care of you. 6.? See a private doctor on 01/24/2025 or whenever you are released for recheck and further care. Ask to review all test results and official radiology reports, to make sure you receive all necessary follow-ups and monitoring, including high BP and fast heart rate treated today. 7.? Seek immediate medical care with intolerable pain, extremely heavy vaginal bleeding (soaking more than 3 pads per hour), or with any concerns. Print Language: Haitian Stand Alone Forms: [facility] Award Info., Patient Portal Info Letter
[2025-01-23 19:27] VITALS: BP 157/102; PULSE 107; RESP 16; TEMP 36.9; O2SAT 100
[2025-01-23 19:32] VITALS: BP 157/102; PULSE 107
[2025-01-23] MEDS: METOPROLOL SUCCINATE XL 25 MG TABCR 100 MG PO (19:32)
[2025-01-23 20:03] VITALS: BP 148/104
[2025-01-23 20:32] VITALS: BP 151/96
== END 2025-01-23 20:34 ==
PROVIDERS: Nurse Practitioner Family; Emergency Provider Emergency Medicine
DX: Z02.89 Encounter for other administrative examinations (principal); O20.0 Threatened abortion; O10.912 Unspecified pre-existing hypertension complicating pregnancy, second trimester; O99.322 Drug use complicating pregnancy, second trimester; F15.10 Other stimulant abuse, uncomplicated; Z3A.17 17 weeks gestation of pregnancy; O99.891 Other specified diseases and conditions complicating pregnancy; R00.0 Tachycardia, unspecified; Z65.3 Problems related to other legal circumstances
CPT/HCPCS: 36415; 76805; 80053; 80307; 80320; 81001; 84702; 85025; 86900; 86901; 99283; A9270; G0480